=== PATIENT | female | born 1960 | race Caucasian/White ===

== ENCOUNTER 2020-03-08 01:11 | Inpatient (IN) | payer BC ==
[~2020-03-08] VITALS: Ht 154.9 cm; Wt 78.9 kg
[2020-03-08] VITALS (8 sets, daily range): BP systolic 131–157; BP diastolic 59–72
[~2020-03-08 01:11] MED LIST: AMARYL2 MG PO; ASPIR 8181 MG PO; ASPIRIN CHEW81 MG PO; ENALAPRIL-HCTZ1 EAC1 PO; GLIMEPIRIDE2 MG PO; GLIPIZIDE5 MG PO; HYDROCHLOROTH12.5 M1 PO; Hydrochlorothiazide PO; Insulin Detemir SQ; LANTUS 3ML100 UNITS/ SQ; LEVOTHYROXINE50 MCG PO; LOVASTATIN40 MG PO; METFORMIN HCL500 M2 PO; METFORMIN HCL850 MG PO; PRINIVIL10 MG PO; SEROQUEL25 MG PO; SYNTHROID50 MCG PO; VASOTEC5 MG PO; ZOCOR20 MG PO
[2020-03-08] MEDS ORDERED: ONDANSETRON HCL INJ 2MG/ML 2ML 2 MG/ML VIAL IV STA (01:24)
[2020-03-08] MEDS ORDERED: PANTOPRAZOLE 40 MG 10ML VIAL IV STA (01:24)
[2020-03-08] MEDS ORDERED: MORPHINE SULFATE 2 MG/ML SYR 1ML IV STA (01:24)
[2020-03-08] MEDS ORDERED: DICYCLOMINE HCL 20 MG/2 ML VIAL IM ONE (01:30)
--- NOTE | 2020-03-08 01:33 | Emergency Department Note ---
History of Present Illnes History of Present Illness Chief Complaint: Abdominal Complaints History of Present Illness This is a 59 year old female PRESENTS TO ED WITH GENERALIZED ABDOMINAL PAIN, WORSE TO RUQ/RLQ; PT DENIES ANY N/V/D; RESP EVEN AND UNLABORED, O2 SAT RA 100%; AFEBRILE; PT REPORTS LBM 03/07/20; PT DENIES ANY BURNING WITH URINATION; states pain gets worse after eating . Historian: Patient Arrival Mode: Car Head Pumper Required: No Onset (how long ago): day(s) (6) Location: abd Quality: pain Radiation: Reports non-radiation Severity: moderate Onset quality: gradual Duration (how long): day(s) (7) Timing of current episode: constant Progression: worsening Chronicity: new Context: Denies recent illness, Denies recent surgery Relieving factors: none Exacerbating factors: eating Associated symptoms: Reports denies other symptoms Treatments prior to arrival: none Past Medical/Family History Physician Review I have reviewed the patient's past medical and family history. Any updates have been documented here. Past Medical History Recent Fever: No Clinical Suspicion of Infectio: No New/Unexplained Change in Ment: No Past Medical History: Hypertension, Diabetes, Hypothyroidism, Hyperlipedemia Other Medical History: HIGH CHOLESTEROL Past Surgical History: Tubal Ligation Social History Smoking Cessation: Never Smoker Alcohol Use: None Physically hurt or threatened: No Family History Family history of heart diseas: No Other family history htn,dm Other Last Tetanus: UNK Review of Systems Review of Systems Constitutional: Reports no symptoms EENTM: Reports no symptoms Cardiovascular: Reports no symptoms Respiratory: Reports no symptoms Gastrointestinal: Reports as per HPI Genitourinary: Reports no symptoms Musculoskeletal: Reports no symptoms Integumentary: Reports no symptoms Neurological: Reports no symptoms Psychological: Reports no symptoms Endocrine: Reports no symptoms Hematological/Lymphatic: Reports no symptoms Physical Exam Related Data Allergies: Coded Allergies: No Known Allergies (Unverified , 05/03/14) Triage Vital Signs Vital Signs Date Time Temp Pulse Resp B/P (MAP) Pulse Ox O2 Delivery O2 Flow Rate FiO2 03/08/20 01:21 98.3 77 17 201/89 100 Room Air Vital signs reviewed: Yes Physical Exam CONSTITUTIONAL Constitutional: Present well-developed, Present well-nourished; Absent distressed HENT HENT: Present normocephalic, Present atraumatic, Present oropharynx clear/moist, Present nose normal HENT L/R: Present left ext ear normal, Present right ext ear normal EYES Eyes: Reports PERRL, Reports conjunctivae normal NECK Neck: Present ROM normal PULMONARY Pulmonary: Present effort normal, Present breath sounds normal CARDIOVASCULAR Cardiovascular: Present regular rhythm, Present heart sounds normal, Present capillary refill normal, Present normal rate GASTROINTESTINAL Abdominal: Present soft, Present nontender, Present bowel sounds normal, Present tender (epigastric and ruq) GENITOURINARY Genitourinary: Present exam deferred SKIN Skin: Present warm, Present dry MUSCULOSKELETAL Musculoskeletal: Present ROM normal NEUROLOGICAL Neurological: Present alert, Present oriented x 3, Present no gross motor or sensory deficits PSYCHOLOGICAL Psychological: Present mood/affect normal, Present judgement normal Results Laboratory Laboratory Laboratory Tests Test 03/08/20 01:24 White Blood Count 11.84 x10e3/uL (4.8-10.8) Red Blood Count 3.77 x10e6/uL (3.6-5.1) Hemoglobin 11.3 g/dL (12.0-16.0) Hematocrit 35.1 % (34.2-44.1) Mean Corpuscular Volume 93.1 fL (81-99) Mean Corpuscular Hemoglobin 30.0 pg (28-32) Mean Corpuscular Hemoglobin Concent 32.2 g/dL (31-35) Red Cell Distribution Width 12.4 % (11.7-14.4) Platelet Count 359 x10e3/uL (140-360) Neutrophils (%) (Auto) 63.4 % (38.7-80.0) Lymphocytes (%) (Auto) 29.2 % (18.0-39.1) Monocytes (%) (Auto) 5.3 % (4.4-11.3) Eosinophils (%) (Auto) 1.4 % (0.0-6.0) Basophils (%) (Auto) 0.3 % (0.0-1.0) Neutrophils # (Auto) 7.5 (2.1-6.9) Lymphocytes # (Auto) 3.5 (1.0-3.2) Monocytes # (Auto) 0.6 (0.2-0.8) Eosinophils # (Auto) 0.2 (0.0-0.4) Basophils # (Auto) 0.0 (0.0-0.1) Absolute Immature Granulocyte (auto 0.05 x10e3/uL (0-0.1) Urine Color Yellow (YELLOW) Urine Clarity Clear (CLEAR) Urine pH 7 (5 - 7) Urine Specific Stephenson 1.015 (1.010-1.025) Urine Protein 1+ (NEGATIVE) Urine Glucose (UA) 2+ (NEGATIVE) Urine Ketones Negative (NEGATIVE) Urine Blood Negative (NEGATIVE) Urine Nitrite Negative (NEGATIVE) Urine Bilirubin Negative (NEGATIVE) Urine Urobilinogen 0.2 mg/dL (0.2 - 1) Urine Leukocyte Esterase Negative (NEGATIVE) Urine RBC 0-5 /HPF (0-5) Urine WBC 0-5 /HPF (0-5) Urine Epithelial Cells Moderate /LPF (NONE) Urine Bacteria Few /HPF (NONE) Sodium Level 140 mmol/L (136-145) Potassium Level 4.0 mmol/L (3.5-5.1) Chloride Level 100 mmol/L (98-107) Carbon Dioxide Level 29 mmol/L (22-29) Anion Gap 15.0 mmol/L (8-16) Blood Urea Nitrogen 22 mg/dL (7-26) Creatinine 1.03 mg/dL (0.57-1.11) Estimat Glomerular Filtration Rate 54 ML/MIN (60-) BUN/Creatinine Ratio 21 (6-25) Glucose Level 231 mg/dL (74-118) Calcium Level 9.9 mg/dL (8.4-10.2) Total Bilirubin 0.2 mg/dL (0.2-1.2) Aspartate Amino Transf (AST/SGOT) 16 IU/L (5-34) Alanine Aminotransferase (ALT/SGPT) 15 IU/L (0-55) Alkaline Phosphatase 105 IU/L (40-150) Creatine Kinase 206 IU/L (29-168) Creatine Kinase MB 0.50 ng/mL (0-5.0) Troponin I < 0.001 ng/mL (0-0.300) Total Protein 7.9 g/dL (6.5-8.1) Albumin 4.1 g/dL (3.5-5.0) Globulin 3.8 g/dL (2.3-3.5) Albumin/Globulin Ratio 1.1 (0.8-2.0) Amylase Level 145 U/L (25-125) Lipase 298 U/L (8-78) Lab results reviewed: Yes Imaging Imaging results reviewed: Yes Assessment & Plan Medical Decision Making MDM pt with upper abd pain after eating cbc,cmp, amylase, lipase, ua, cardiac enzymes, ekg, gallbladder ultrasound ordered to eval for pancreatitis, cholecystitis, gallstone, uti, elevated lft's, myocardial infarction I SPOKE WITH DR CERON AND DR Bibiana CAMARGO, ADMIT INPATIENT Assessment & Plan Final Impression: (1) Pancreatitis Depart Disposition: ADMITTED Last Vital Signs Date Time Temp Pulse Resp B/P (MAP) Pulse Ox O2 Delivery O2 Flow Rate FiO2 03/08/20 01:21 98.3 77 17 201/89 100 Room Air Home Meds Active Scripts Simvastatin (ZOCOR) 20 Mg Tablet, 40 MG PO HS for 10 Days Prov:GAVIN CHINO NP 06/17/15 Quetiapine Fumarate (SEROQUEL) 25 Mg Tablet, 25 MG PO HS for 10 Days Prov:GAVIN CHINO NP 06/17/15 Lisinopril (PRINIVIL) 10 Mg Tablet, 10 MG PO DAILY for 10 Days Prov:GAVIN CHINO NP 06/17/15 Levothyroxine Sodium (SYNTHROID) 50 Mcg Tab, 25 MCG PO DAILY@06 for 10 Days Prov:GAVIN CHINO NP 06/17/15 [Insulin Detemir] 100 UNIT/ML PEN No Conflict Check, 30 UNIT SQ QAM for 30 Days Prov:GAVIN CHINO NP 06/17/15 [Hydrochlorothiazide] 25 MG TAB No Conflict Check, 12.5 MG PO DAILY for 10 Days Prov:GAVIN CHINO NP 06/17/15 Glimepiride (AMARYL) 2 Mg Tablet, 4 MG PO BID for 10 Days Prov:GAVIN CHINO NP 06/17/15 Enalapril Maleate (VASOTEC) 5 Mg Tab, 5 MG PO DAILY for 10 Days Prov:GAVIN CHINO NP 06/17/15 Aspirin (ASPIRIN CHEW) 81 Mg Chew, 81 MG PO DAILY for 10 Days Prov:GAVIN CHINO NP 06/17/15 Medications in the ED Morphine Sulfate 4 mg NOW STAT IV ; Start 03/08/20 at 01:24; Stop 03/08/20 at 01:25; Status UNV Ondansetron HCl 4 mg NOW STAT IV ; Start 03/08/20 at 01:24; Stop 03/08/20 at 01:25; Status UNV Dicyclomine HCl 20 mg ONCE ONCE IM ; Start 03/08/20 at 01:30; Stop 03/08/20 at 01:31 Pantoprazole Sodium 40 mg NOW STAT IV ; Start 03/08/20 at 01:24; Stop 03/08/20 at 01:25; Status UNV BILL DANIELS MD Mar 08, 2020 01:32
[2020-03-08 01:41] LABS: BASOPHILS % 0.3 % (0.0-1.0); EOSINOPHILS # (AUTO) 0.2 (0.0-0.4); EOSINOPHILS % 1.4 % (0.0-6.0); HEMATOCRIT 35.1 % (34.2-44.1); HEMOGLOBIN 11.3 g/dL (12.0-16.0); LYMPHOCYTES # (AUTO) 3.5 (1.0-3.2); LYMPHOCYTES % 29.2 % (18.0-39.1); MEAN CORPUSCULAR HGB CONC 32.2 g/dL (31-35); MEAN CORPUSCULAR VOLUME 93.1 fL (81-99); MONOCYTES # (AUTO) 0.6 (0.2-0.8); MONOCYTES % 5.3 % (4.4-11.3); NEUTROPHILS # (AUTO) 7.5 (2.1-6.9); NEUTROPHILS % 63.4 % (38.7-80.0); PLATELET COUNT 359 x10e3/uL (140-360); RED BLOOD COUNT 3.77 x10e6/uL (3.6-5.1); RED CELL DISTRIBUTION WIDTH 12.4 % (11.7-14.4)
[2020-03-08 01:42] LABS: BILIRUBIN,URINE NEGATIVE (NEGATIVE); CLARITY,URINE CLEAR (CLEAR); COLOR,URINE YELLOW (YELLOW); KETONES,URINE NEGATIVE (NEGATIVE); LEUKOCYTE ESTERASE ,URINE NEGATIVE (NEGATIVE); NITRITE,URINE NEGATIVE (NEGATIVE); PROTEIN,URINE DIPSTICK 1+ (NEGATIVE); URINE UROBILINOGEN 0.2 mg/dL (0.2 - 1)
[2020-03-08 01:51] LABS: BACTERIA,URINE FEW /HPF; EPITHELIAL CELLS,URINE MODERATE /LPF; RBC,URINE 0-5 /HPF (0-5); WBC,URINE (MAN) 0-5 /HPF (0-5)
--- OUTSIDE RECORDS SUMMARY | 2020-03-08 01:53 | XMS REPORT | Continuity of Care Document ---
Author Author [facility] Organization [facility] Address [address] [place] [address] Phone Unavailable Care Team Providers Care Hygiene Assistant Name Role Phone Unavailable Unavailable Problems This patient has no known problems. Allergies, Adverse Reactions, Alerts This patient has no known allergies or adverse reactions. Medications This patient has no known medications. Procedures This patient has no known procedures. Results Test Description Test Time Test Comments Results Result Comments Source BREAST STEREO CORE BIOPSY RIGHT 2019-09-27 08:00:21 - BREAST STEREO CORE BIOPSY RIGHTSTEREOTACTIC GUIDED BIOPSY RIGHT BREAST WITH MARKING DEVICE INSERTED: 09/20/2019CLINICAL: Stereotactic biopsy, right breast. Comparison is made to exam dated 09/05/2019 mammogram - [facility]. A stereotactic guided biopsy was performed for the asymmetry located in the right breast at 11 o'clock, posterior depth. This was described on the previous mammo graphy report. The skin was prepped in the usual manner. Local anesthetic was administered to the access site. The abnormality was approached from the craniocaudal aspect using an upright mammography unit. A biopsy needle was placed adjacent to the abnormality under computer guidance and confirmatory stereotactic mammography images were obtained to document needle placement. Once the needle was documented to be in the correct location, a specimen was obtained using an automated biopsy gun. A clip was inserted into the biopsy cavity. The specimen was sent to the laboratory for pathological analysis. IMPRESSION: STEREOTACTIC GUIDED BIOPSYStereotactic guided biopsy of the asymmetry in the right breast at 11 o'clock, posterior depth, was successful with no apparent post procedure complications. Waiting for pathology results. A final report will be issued when these become available. Final Pathology:Benign fibroglandular and fatty breast parenchyma. Negative for atypia, in situ and invasive malignancy.Recommendation:Benign biopsy, concordant. Normal interval follow-up in 1 year is recommended at this time.Dameon Vega M.D. ss/:09/27/2019 08:00:21 copy to: [facility], [facility], ph: [phone], fax: [phone] Technologist: Belle ROOT, [facility]: Benign Biopsy BREAST STEREO CORE BIOPSY RIGHT 2019-09-27 08:00:21 - BREAST STEREO CORE BIOPSY RIGHTSTEREOTACTIC GUIDED BIOPSY RIGHT BREAST WITH MARKING DEVICE INSERTED: 09/20/2019CLINICAL: Stereotactic biopsy, right breast. Comparison is made to exam dated 09/05/2019 mammogram - [facility] A stereotactic guided biopsy was performed for the asymmetry located in the right breast at 11 o'clock, posterior depth. This was described on the previous mammo graphy report. The skin was prepped in the usual manner. Local anesthetic was administered to the access site. The abnormality was approached from the craniocaudal aspect using an upright mammography unit. A biopsy needle was placed adjacent to the abnormality under computer guidance and confirmatory stereotactic mammography images were obtained to document needle placement. Once the needle was documented to be in the correct location, a specimen was obtained using an automated biopsy gun. A clip was inserted into the biopsy cavity. The specimen was sent to the laboratory for pathological analysis. IMPRESSION: STEREOTACTIC GUIDED BIOPSYStereotactic guided biopsy of the asymmetry in the right breast at 11 o'clock, posterior depth, was successful with no apparent post procedure complications. Waiting for pathology results. A final report will be issued when these become available. Final Pathology:Benign fibroglandular and fatty breast parenchyma. Negative for atypia, in situ and invasive malignancy.Recommendation:Benign biopsy, concordant. Normal interval follow-up in 1 year is recommended at this time.Dameon Vega M.D. ss/:09/27/2019 08:00:21 copy to: [facility], [facility], ph: [phone], fax: [phone] Technologist: Belle ROOT, [facility] sent: Benign Biopsy DIAG MAMM BILATERAL ZOE CAD DIGITAL 2019-09-05 09:13:23 - DIAG MAMM BILATERAL ZOE CAD DIGITALBILATERAL DIGITAL DIAGNOSTIC MAMMOGRAM 3D/2D WITH CAD: 09/05/2019CLINICAL: Focal pain, right breast. Digital breast tomosynthesis was performed in addition to routine CC and MLO views. Current mammographic images were evaluated by either a [employer] M-Vu or a Intale ImageChecker CAD (computer aided detection system). Comparison is made to exams dated 04/12/2018 mammogram, 10/13/2016 mammogram, and [facility]21/[facility] There are scattered fibroglandular tissues in both breasts. Questionable area of focal asymmetry/architectural distortion in the right upper outer quadrant, approximately 8 cm from the nipple, best seen in RS spot compression view slice 28. No suspicious mass, architectural distortion, malignant type calcification, or lymph node abnormality detected in the left breast. INCOMPLETE: ADDITIONAL IMAGING EVALUATION NEEDEDQuestionable distortion/focal asymmetry in the right upper outer quadrant posterior depth. Targeted right and bilateral survey ultrasound of follow.- BREAST ULTRASOUND BILATERALULTRASOUND OF BOTH BREASTS: 09/05/2019Comparison is made to exams dated 04/12/2018 mammogram, 10/13/2016 mammogram, and 09/21/2015 mammogram - [facility]-. Color flow and real-time ultrasound of both breasts were performed. Grissom scale images of the real-time examination were reviewed. The breast tissue has scattered fibroglandular background echotexture. Bilateral survey ultrasound demonstrates no suspicious sonographic abnormality. No axillary lymphadenopath was seen.IMPRESSION: SUSPICIOUS OF MALIGNANCY - FOLLOW-UP RECOMMENDEDQuestionable focal asymmetry/distortion in the right upper outer quadrant posterior depth. A tomosynthesis guided core biopsy should be attempted and if on the day of biopsy this cannot be localized, then a six-month follow-up is recommended at this time. Clinical follow up is also recommended, and further management of clinical findings should be based on clinical examination.Dameon Vega M.D. ss/:09/05/2019 09:13:23 copy to: [facility], [facility], ph: [phone], fax: [phone] Technologist: Kristin ROOT, [facility] sent: BIRADS 4/5 Biopsy Mammogram BI-RADS: 0 Incomplete: Additional Imaging Evaluation Needed Ultrasound BI-RADS: 4a Suspicious abnormality - low suspicion for malignancy BREAST ULTRASOUND BILATERAL 2019-09-05 09:13:23 - DIAG MAMM BILATERAL ZOE CAD DIGITALBILATERAL DIGITAL DIAGNOSTIC MAMMOGRAM 3D/2D WITH CAD: 09/05/2019CLINICAL: Focal pain, right breast. Digital breast tomosynthesis was performed in addition to routine CC and MLO views. Current mammographic images were evaluated by either a [employer] M-Vu or a [employer]ale ImageChecker CAD (computer aided detection system). Comparison is made to exams dated 04/12/2018 mammogram, 10/13/2016 mammogram, and 09/21/2015 mammogram - [facility]-. There are scattered fibroglandular tissues in both breasts. Questionable area of focal asymmetry/architectural distortion in the right upper outer quadrant, approximately 8 cm from the nipple, best seen in RS spot compression view slice 28. No suspicious mass, architectural distortion, malignant type calcification, or lymph node abnormality detected in the left breast. INCOMPLETE: ADDITIONAL IMAGING EVALUATION NEEDEDQuestionable distortion/focal asymmetry in the right upper outer quadrant posterior depth. Targeted right and bilateral survey ultrasound of follow.- BREAST ULTRASOUND BILATERALULTRASOUND OF BOTH BREASTS: 09/05/2019Comparison is made to exams dated 04/12/2018 mammogram, 10/13/2016 mammogram, and 09/21/2015 mammogram - [facility]-. Color flow and real-time ultrasound of both breasts were performed. Grissom scale images of the real-time examination were reviewed. The breast tissue has scattered fibroglandular background echotexture. Bilateral survey ultrasound demonstrates no suspicious sonographic abnormality. No axillary lymphadenopath was seen.IMPRESSION: SUSPICIOUS OF MALIGNANCY - FOLLOW-UP RECOMMENDEDQuestionable focal asymmetry/distortion in the right upper outer quadrant posterior depth. A tomosynthesis guided core biopsy should be attempted and if on the day of biopsy this cannot be localized, then a six-month follow-up is recommended at this time. Clinical follow up is also recommended, and further management of clinical findings should be based on clinical examination.aDmeon Vega M.D. ss/:09/05/2019 09:13:23 copy to: [facility], [facility], ph: [phone], fax: [phone] Technologist: Kristin ROOT, [facility] sent: BIRADS 4/5 Biopsy Mammogram BI-RADS: 0 Incomplete: Additional Imaging Evaluation Needed Ultrasound BI-RADS: 4a Suspicious abnormality - low suspicion for malignancy DIAG MAMM BILATERAL CAD DIGITAL 2018-04-12 15:58:52 - DIAG MAMM BILATERAL CAD DIGITALBILATERAL DIGITAL DIAGNOSTIC MAMMOGRAM WITH CAD: 04/12/2018Current mammographic images were evaluated by either a [employer] M-Vu or a [employer]ale ImageChecker CAD (computer aided detection system). Comparison is made to exams dated 10/13/2016 mammogram, 09/21/2015 mammogram, and 10/28/2012 mammogram - [facility]-. There are scattered fibroglandular tissues in both breasts. No suspicious mass, architectural distortion, malignant type calcification, or lymph node abnormality detected. INCOMPLETE ASSESSMENT: ADDITIONAL IMAGING EVALUATION RECOMMENDEDUltrasound pending for additional evaluation. Resume annual screening mammography in one year. - BREAST ULTRASOUND BILATERALULTRASOUND OF BOTH BREASTS AND BOTH AXILLA: 04/12/2018Comparison is made to exams dated 10/13/2016 mammogram, 09/21/2015 mammogram, and 10/28/2012 mammogram - [facility]-. Real-time ultrasound of both breasts and both axilla was performed. No abnormalities were seen sonographically in either breast or either axilla. Clinical breast exam was unremarkable.IMPRESSION: NEGATIVE There is no sonographic evidence of malignancy. Resume annual screening mammography in one year. Mabel Prabhakar M.D. dm/:04/12/2018 15:58:52 Entry: - 04/12/2018 16:26:59copy to: [facility], [facility], ph: [phone], fax: [phone] Technologist: Amber Oliver , [facility] sent: BIRADS 1-2 Combo FU Letter Mammogram BI-RADS: 0 Indeterminate Ultrasound BI-RADS: 1 Negative BREAST ULTRASOUND BILATERAL 2018-04-12 15:58:52 - DIAG MAMM BILATERAL CAD DIGITALBILATERAL DIGITAL DIAGNOSTIC MAMMOGRAM WITH CAD: 04/12/2018Current mammographic images were evaluated by either a [employer] M-Vu or a [employer]ale ImageChecker CAD (computer aided detection system). Comparison is made to exams dated 10/13/2016 mammogram, 09/21/2015 mammogram, and 10/28/2012 mammogram - [facility]-. There are scattered fibroglandular tissues in both breasts. No suspicious mass, architectural distortion, malignant type calcification, or lymph node abnormality detected. INCOMPLETE ASSESSMENT: ADDITIONAL IMAGING EVALUATION RECOMMENDEDUltrasound pending for additional evaluation. Resume annual screening mammography in one year. - BREAST ULTRASOUND BILATERALULTRASOUND OF BOTH BREASTS AND BOTH AXILLA: 04/12/2018Comparison is made to exams dated 10/13/2016 mammogram, 09/21/2015 mammogram, and 10/28/2012 mammogram - [facility]-. Real-time ultrasound of both breasts and both axilla was performed. No abnormalities were seen sonographically in either breast or either axilla. Clinical breast exam was unremarkable.IMPRESSION: NEGATIVE There is no sonographic evidence of malignancy. Resume annual screening mammography in one year. Mabel Prabhakar M.D. dm/:04/12/2018 15:58:52 Entry: - 04/12/2018 16:26:59copy to: [facility], [facility], ph: [phone], fax: [phone] Technologist: Amber Oliver , [facility] sent: BIRADS 1-2 Combo FU Letter Mammogram BI-RADS: 0 Indeterminate Ultrasound BI-RADS: 1 Negative
[2020-03-08 01:57] LABS: AMYLASE 145 U/L (25-125); LIPASE 298 U/L (8-78)
[2020-03-08 02:01] LABS: ALANINE AMINOTRANSFERASE 15 IU/L (0-55); ALBUMIN 4.1 g/dL (3.5-5.0); ALBUMIN/GLOBULIN RATIO 1.1 (0.8-2.0); ALKALINE PHOSPHATASE 105 IU/L (40-150); BLOOD UREA NITROGEN 22 mg/dL (7-26); BUN/CREATININE RATIO 21 (6-25); CALCIUM 9.9 mg/dL (8.4-10.2); CARBON DIOXIDE 29 mmol/L (22-29); CHLORIDE 100 mmol/L (98-107); CREATINE KINASE 206 IU/L (29-168); CREATININE, SERUM 1.03 mg/dL (0.57-1.11); EST GLOMERULAR FILTRATION RATE 54 ML/MIN (60-); GLUCOSE 231 mg/dL (74-118); SODIUM 140 mmol/L (136-145)
--- NOTE | 2020-03-08 03:47 | Diagnostic Imaging Report ---
EXAM: Right Upper Quadrant Ultrasound with Doppler INDICATION: ^ruq pain ^[id number] ^[id number] ^Y COMPARISON: Abdominal CT report on 05/03/2014. TECHNIQUE: Transverse and longitudinal images of the right upper abdomen were obtained. Grayscale, color Doppler and spectral waveform analysis of the hepatic vasculature and splenic vein were performed. FINDINGS: Liver: Size: 16.8 cm in the right midclavicular line, normal Appearance: Increased echogenicity, smooth contour Mass: No focal masses Gallbladder: Not seen. Bile Ducts: Intrahepatic Ducts: No dilatation Extrahepatic Ducts: Common bile duct measures 0.66 cm, no dilatation Pancreas: Visualized portions of the pancreatic head, neck and proximal body are normal. Right Kidney: Size: 10.8 cm Echogenicity: Normal Parenchymal thickness: Normal Collecting system: No hydronephrosis Stones: None Cyst/Mass: A tiny hyperechoic focus within the parenchyma of the inferior pole can be a vessel. Vessels: Main Portal Vein: Diameter: 0.9 cm, normal. Normal flow direction. Aorta: Visualized portions are normal Inferior Vena Cava: Visualized portions are normal Free Fluid: No ascites or pleural effusion IMPRESSION: Gallbladder not seen. Per abdominal CT report on 05/03/2014, the gallbladder has been removed. Hepatic steatosis. Signed by: Gonzales Carrasco DO on 03/08/2020 3:43 AM
--- OUTSIDE RECORDS SUMMARY | 2020-03-08 03:53 | XMS REPORT | Continuity of Care Document ---
Author Author [facility] Organization [facility] Address [address] [place] [id number] Phone Unavailable Care Team Providers Care Materials Director Name Role Phone Selene DANIELS Attphys Unavailable Problems This patient has no known problems. Allergies, Adverse Reactions, Alerts This patient has no known allergies or adverse reactions. Medications This patient has no known medications. Procedures This patient has no known procedures. Results Test Description Test Time Test Comments Results Result Comments Source [facility] 2020-03-08 03:41:00 [facility] 1960 Sex: F [facility] [address] [place] [address] Patient Name: CARI HALL MR #: [id number] : 1960 Age/Sex: 59/F Req #: [id number] [facility] Physician: Ordered by: BILL DANIELS MD Report #: [id number] Location: ER Room/Bed: Procedure: [id number] US/US GALLBLADDER Exam Date: 03/08/20 Exam Time: 211 REPORT STATUS: Signed EXAM: Right Upper Quadrant Ultrasound with Doppler INDICATION: ruq pain [id number] Y COMPARISON: Abdominal CT report on 05/03/2014. TECHNIQUE: Transverse and longitudinal images of the right upper abdomen were obtained. Grayscale, color Doppler and spectral waveform analysis of the hepatic vasculature and splenic vein were performed. FINDINGS: Liver: Size: 16.8 cm in the right midclavicular line, normal Appearance: Increased echogenicity, smooth contour Mass: No focal masses Gallbladder: Not seen. Bile Ducts: Intrahepatic Ducts: No dilatation Extrahepatic Ducts: Common bile duct measures 0.66 cm, no dilatation Pancreas: Visualized portions of the pancreatic head, neck and proximal body are normal. Right Kidney: Size: 10.8 cm Echogenicity: Normal Parenchymal thickness: Normal Collecting system: No hydronephrosis Stones: None Cyst/Mass: A tiny hyperechoic focus within the parenchyma of the inferior pole can be a vessel. Vessels: Main Portal Vein: Diameter: 0.9 cm, normal. Normal flow direction. Aorta: Visualized portions are normal Inferior Vena Cava: Visualized portions are normal Free Fluid: No ascites or pleural effusion IMPRESSION: Gallbladder not seen. Per abdominal CT report on 05/03/2014, the gallbladder has been removed. Hepatic steatosis. Signed by: Gonzales Carrasco DO on 03/08/2020 3:43 AM Dictated By: GONZALES CARRASCO DO 2 Transcribed By: TRINIDAD on 03/08/20342 COPY TO: BILL DANIELS MD BREAST STEREO CORE BIOPSY RIGHT 2019-09-27 08:00:21 - BREAST STEREO CORE BIOPSY RIGHTSTEREOTACTIC GUIDED BIOPSY RIGHT BREAST WITH MARKING DEVICE INSERTED: 09/20/2019CLINICAL: Stereotactic biopsy, right breast. Comparison is made to exam dated 09/05/2019 mammogram - [facility]. A stereotactic guided biopsy was [...] copy to: [facility], [facility], ph: [phone], fax: [phone] Technologist: Belle ROOT, [facility] sent: Benign Biopsy BREAST STEREO CORE BIOPSY RIGHT 2019-09-27 08:00:21 - BREAST STEREO CORE BIOPSY RIGHTSTEREOTACTIC GUIDED BIOPSY RIGHT BREAST WITH MARKING DEVICE INSERTED: 09/20/2019CLINICAL: Stereotactic biopsy, right breast. Comparison is made to exam dated 09/05/2019 mammogram - [facility] A stereotactic guided biopsy was [...] copy to: [facility], [facility], ph: [phone], fax: [phone] Technologist: Belle ROOT, [facility] sent: Benign Biopsy DIAG MAMM BILATERAL ZOE CAD DIGITAL 2019-09-05 09:13:23 - DIAG MAMM BILATERAL ZOE CAD DIGITALBILATERAL DIGITAL DIAGNOSTIC MAMMOGRAM 3D/2D WITH CAD: 09/05/2019CLINICAL: Focal pain, right breast. Digital breast tomosynthesis was performed in addition to routine CC and MLO views. Current mammographic images were evaluated by either a [employer] M-Vu or a [employer] ImageChecker CAD (computer aided detection system). Comparison is made to exams dated 04/12/2018 mammogram, 10/13/2016 mammogram, and 09/21/2015 [facility]. There are scattered fibroglandular tissues in both [...] 10/13/2016 mammogram, and 09/21/2015 [facility]. Color flow and real-time ultrasound of both [...] copy to: [facility], [facility], ph: [phone], fax: [phone] Technologist: Kristin ROOT, [facility] sent: BIRADS 4/5 Biopsy Mammogram [...] mammographic images were evaluated by either a [employer] M-Vu or a [employer] ImageChecker CAD (computer aided detection system). Comparison is made to exams dated 04/12/2018 mammogram, 10/13/2016 mammogram, and 09/21/2015 mammogram - [facility] There are scattered fibroglandular tissues [...] 10/13/2016 mammogram, and 09/21/2015 [facility]. Color flow and real-time ultrasound of both [...] copy to: [facility], [facility], ph: [phone], fax: [phone] Technologist: Kristin ROOT, [facility]letter sent: BIRADS 4/5 Biopsy Mammogram BI-RADS: 0 Incomplete: Additional Imaging Evaluation Needed Ultrasound BI-RADS: 4a Suspicious abnormality - low suspicion for malignancy DIAG MAMM BILATERAL CAD DIGITAL 2018-04-12 15:58:52 - DIAG MAMM BILATERAL CAD DIGITALBILATERAL DIGITAL DIAGNOSTIC MAMMOGRAM WITH CAD: 04/12/2018Current mammographic images were evaluated by either a [employer] M-Vu or a [employer] ImageChecker CAD (computer aided detection system). Comparison is made to exams dated 10/13/2016 mammogram, 09/21/2015 mammogram, and 10/28/2012 [facility]. There are scattered fibroglandular tissues in both breasts. No suspicious mass, architectural distortion, malignant type calcification, or lymph node abnormality detected. INCOMPLETE ASSESSMENT: ADDITIONAL IMAGING EVALUATION RECOMMENDEDUltrasound pending for additional evaluation. Resume annual screening mammography in one year. - BREAST ULTRASOUND BILATERALULTRASOUND OF BOTH BREASTS AND BOTH AXILLA: 04/12/2018Comparison is made to exams dated 10/13/2016 mammogram, 09/21/2015 mammogram, and 10/28/2012 [facility]. Real-time ultrasound of both breasts and both axilla was performed. No abnormalities were seen sonographically in either breast or either axilla. Clinical breast exam was unremarkable.IMPRESSION: NEGATIVE There is no sonographic evidence of malignancy. Resume annual screening mammography in one year. Mabel Prabhakar M.D. dm/:04/12/2018 15:58:52 Entry: 04/12/2018 16:26:59copy to: [facility], [facility], ph: [phone], fax: [phone] Technologist: Amber Oliver , [facility] sent: BIRADS 1-2 Combo FU Letter Mammogram BI-RADS: 0 Indeterminate Ultrasound BI-RADS: 1 Negative BREAST ULTRASOUND BILATERAL 2018-04-12 15:58:52 - DIAG MAMM BILATERAL CAD DIGITALBILATERAL DIGITAL DIAGNOSTIC MAMMOGRAM WITH CAD: 04/12/2018Current mammographic images were evaluated by either a [employer] M-Vu or a [employer] CAD (computer aided detection system). Comparison is made to exams dated 10/13/2016 mammogram, 09/21/2015 mammogram, and 10/28/2012 mammogram - [facility] There are scattered fibroglandular tissues [...] 09/21/2015 mammogram, and 10/28/2012 [facility]. Real-time ultrasound of both breasts and both axilla was performed. No abnormalities were seen sonographically in either breast or either axilla. Clinical breast exam was unremarkable.IMPRESSION: NEGATIVE There is no sonographic evidence of malignancy. Resume annual screening mammography in one year. Mabel Prabhakar M.D. dm/:04/12/2018 15:58:52 Entry: 04/12/2018 16:26:59copy to: [facility], [facility], ph: [phone], fax: [phone] Technologist: Amber ROOT, [facility] sent: BIRADS 1-2 Combo FU Letter Mammogram BI-RADS: 0 Indeterminate Ultrasound BI-RADS: 1 Negative
[2020-03-08] MEDS ORDERED: DEXTROSE 50% SYRINGE 50 ML IV PRN (04:00)
--- NOTE | 2020-03-08 04:55 | NUR ---
Received report from ER nurse.
--- NOTE | 2020-03-08 05:10 | NUR ---
Patient arrived to the floor via W/C.
[2020-03-08] MEDS: INSULIN REGULAR, HUMAN 100 UNIT/1 ML 3ML VIAL SQ SCH ×4 (07:30→21:00)
[2020-03-08] MEDS: SODIUM CHLORIDE 0.9% 1000ML 1,000 ML IV SCH ×5 (08:00→20:00)
--- NOTE | 2020-03-08 09:14 | NUR ---
pt off unit for procedure.
[2020-03-08] MEDS: MORPHINE SULFATE 2 MG/ML SYR 1ML IV PRN ×2 (09:36→22:00)
[2020-03-08] MEDS: ONDANSETRON HCL INJ 2MG/ML 2ML 2 MG/ML VIAL IV PRN ×2 (09:37→22:00)
--- NOTE | 2020-03-08 11:15 | NUR ---
pt return to room resp even and unlabored at this time
--- NOTE | 2020-03-08 11:49 | Diagnostic Imaging Report ---
MRI/MRCP of the abdomen, without contrast, 03/08/2020. History: Right upper quadrant pain, concern for pancreatitis. Comparison: None available. TECHNIQUE: Multiplanar, multisequence images of the abdomen were acquired without the administration of intravenous gadolinium as per the MRCP protocol. Three-dimensional reconstructions were acquired and utilized by the dictating radiologist at the time of interpretation. Discussion: The gallbladder is absent. There is no intrahepatic or extrahepatic ductal dilatation. The CBD measures 7 mm in diameter. There is no intraluminal filling defect. Pancreatic duct is not dilated. Evaluation of intra-abdominal organs is limited without IV contrast. The liver, spleen, pancreas, kidneys, and adrenal glands are unremarkable. There is no fluid surrounding the pancreas. There is no evidence of free fluid. IMPRESSION: Status post cholecystectomy. Otherwise unremarkable MRCP. Signed by: Lawson Coombs on 03/08/2020 11:46 AM
[2020-03-08 12:39] LABS: % IRON SATURATION 10 % (15-50); IRON 34 ug/dL (50-170); TOTAL IRON BINDING CAPACITY 326 ug/dL (261-478); TRANSFERRIN 233 mg/dL (180-382)
[2020-03-08 18:46] LABS: AMYLASE 148 U/L (25-125); LIPASE 298 U/L (8-78)
--- NOTE | 2020-03-08 19:21 | NUR ---
walking rounds complete report given to on coming nurse.
[2020-03-08] MEDS ORDERED: IRON SUCROSE 100 MG in SODIUM CHLORIDE 0.9% 100 ML 100 ML IV SCH (21:30)
[2020-03-08] MEDS ORDERED: CYANOCOBALAMIN INJ 1,000 MCG/ML VIAL IM ONE (21:30)
[2020-03-09] VITALS (8 sets, daily range): BP systolic 124–164; BP diastolic 58–72
[2020-03-09] MEDS: SODIUM CHLORIDE 0.9% 1000ML 1,000 ML IV SCH ×4 (04:00→23:26)
--- NOTE | 2020-03-09 04:06 | History and Physical ---
HISTORY OF PRESENT ILLNESS: The patient was seen earlier in the day and basically, she presented to the hospital complaining generalized abdominal pain, worse in the right upper quadrant and right lower quadrant. The patient denies nausea, vomiting, or diarrhea. The patient denies having chest pain or shortness of breath. O2 saturation was 100%, has been afebrile. The patient denies urinary symptoms, but is still having generalized abdominal pain and noted to have a slight elevation of amylase, lipase, and the patient underwent workup with a CAT scan of the abdomen and no significant findings. The patient did have imaging studies consistent of ultrasound of the gallbladder with no acute findings. MRCP has been ordered as well. The patient is status post hypothyroidism. Cholecystectomy. Otherwise, MRCP was unremarkable. PAST MEDICAL HISTORY: The patient does have a history of hypertension, diabetes mellitus, hypothyroidism, and hyperlipidemia. No myocardial infarction or CVA. PAST SURGICAL HISTORY: History of tubal ligation. SOCIAL HISTORY: No tobacco, no alcohol abuse. ALLERGIES: NO KNOWN DRUG ALLERGIES THAT I AM AWARE. MEDICATIONS: At the time of admission as per medication list. PHYSICAL EXAMINATION: GENERAL: Revealed the patient alert, oriented to person, time, and place. The patient did not appear to be in distress at this time. VITAL SIGNS: Blood pressure 140/70, respirations 16, pulse 64, and temperature 98.2. Physical examination: The patient was alert oriented person time place. The patient appeared to be in no distress. Physical examination revealed a patient who was alert oriented to person time place the patient was in no distress. HEENT: No gross abnormalities. Neck: Supple no JVD, thyroid gland was not enlarged. Lungs: Clear to auscultation. Heart: Regular rate and rhythm no murmurs, no gallops, no rubs. Abdomen: Soft nontender, no organomegaly, no palpable masses, bowel sounds were present. On admission some tenderness noted in the abdomen. Extremities: No cyanosis clubbing or edema. Neuro: No focal weakness. Skin: Negative. Psychiatrist: Normal mood Laboratory data: WBC 11.84, hemoglobin 8.3, hematocrit 35.1, platelet count 359,000, neutrophils 7.5 Urinalysis: Essentially negative. 2+ glucose. WBC 0-5 per high per field. Few bacteria. CHEM profile revealed: Sodium 140, potassium 4.0, chloride 100, CO2 29, BUN 22, creatinine 1.03, GFR 54, BUN/creatinine ratio 21, calcium level 9.9, total bili 0.2, AST 16, ALT 15, alkaline phosphatase 105 Amylase 135, lipase 298 Assessment: Abdominal pain etiology determined. Status post cholecystectomy Elevated liver function Possible UTI Hypertension Diabetes mellitus type 2 Hyperlipidemia Hypothyroidism. Plan of care: Follow-up kidney function GI consultation Reconcile home medication Monitor blood pressure Monitor H&H MD HEATHER Tam/MIGUEL /[id number] MTDD
[2020-03-09 06:32] LABS: BASOPHILS % 0.4 % (0.0-1.0); EOSINOPHILS # (AUTO) 0.2 (0.0-0.4); EOSINOPHILS % 1.9 % (0.0-6.0); HEMATOCRIT 33.6 % (34.2-44.1); HEMOGLOBIN 10.8 g/dL (12.0-16.0); LYMPHOCYTES # (AUTO) 3.4 (1.0-3.2); MEAN CORPUSCULAR HGB CONC 32.1 g/dL (31-35); MEAN CORPUSCULAR VOLUME 93.3 fL (81-99); MONOCYTES # (AUTO) 0.5 (0.2-0.8); MONOCYTES % 5.2 % (4.4-11.3); NEUTROPHILS # (AUTO) 5.6 (2.1-6.9); NEUTROPHILS % 57.2 % (38.7-80.0); PLATELET COUNT 342 x10e3/uL (140-360); RED CELL DISTRIBUTION WIDTH 12.6 % (11.7-14.4)
--- NOTE | 2020-03-09 07:12 | NUR ---
Received report from retail shift manager nurse at bedside. Patient stable and in no respiratory distress. IVF restarted. No complaints of pain. Call light in reach.
[2020-03-09 07:14] LABS: ALANINE AMINOTRANSFERASE 14 IU/L (0-55); ALBUMIN 3.6 g/dL (3.5-5.0); ALBUMIN/GLOBULIN RATIO 1.1 (0.8-2.0); ALKALINE PHOSPHATASE 97 IU/L (40-150); AMYLASE 75 U/L (25-125); ANION GAP 15.1 mmol/L (8-16); BLOOD UREA NITROGEN 11 mg/dL (7-26); BUN/CREATININE RATIO 15 (6-25); CALCIUM 8.8 mg/dL (8.4-10.2); CARBON DIOXIDE 27 mmol/L (22-29); CHLORIDE 104 mmol/L (98-107); CREATININE, SERUM 0.72 mg/dL (0.57-1.11); EST GLOMERULAR FILTRATION RATE > 60 ML/MIN (60-); GLUCOSE 130 mg/dL (74-118); LIPASE 64 U/L (8-78); POTASSIUM 4.1 mmol/L (3.5-5.1); SODIUM 142 mmol/L (136-145)
[2020-03-09] MEDS: INSULIN REGULAR, HUMAN 100 UNIT/1 ML 3ML VIAL SQ SCH ×3 (08:57→17:03)
[2020-03-09] MEDS: IRON SUCROSE 100 MG in SODIUM CHLORIDE 0.9% 100 ML 100 ML IV SCH (08:58)
[2020-03-09] MEDS: CYANOCOBALAMIN INJ 1,000 MCG/ML VIAL IM SCH (08:58)
--- NOTE | 2020-03-09 13:45 | NUR ---
Patient complained of left hamstring discomfort 4/10 and requested a warm compress. Warm compress provided.
--- NOTE | 2020-03-09 13:50 | NUR ---
This nurse reached out to Dr. Mcclellan to upgrade diet as patient is tolerating clear liquids with no complaints of pain or nausea. Pending callback.
[2020-03-09] MEDS ORDERED: MORPHINE SULFATE INJ 4 MG/ML INJ 1ML IV PRN (14:45)
--- NOTE | 2020-03-09 19:25 | NUR ---
Patient received lying in bed. AAO x 3. Patient had no complaints of pain. Respirations even and non-labored. Safety measures in place. NS infusing at 100 cc/hr. Patient instructed to call for assistance when needed. Call light within reach.
--- NOTE | 2020-03-09 23:09 | NUR ---
Patient complained of having a headache and her BP is elevated. Dr. Mcgarry notified. New orders received for Tylenol 650 mg PO Q6H and Hydralazine 10 mg IV Q6H PRN.
[2020-03-09] MEDS ORDERED: HYDRALAZINE HCL 20 MG/ML VIAL IV PRN (23:15)
[2020-03-09] MEDS ORDERED: ACETAMINOPHEN 325 MG TAB PO PRN (23:15)
[2020-03-10] VITALS: BP 148/49
--- NOTE | 2020-03-10 00:38 | NUR ---
03/09/2020 progress note Subjective: The patient feeling better. She does have some discomfort in the abdomen. No nausea, no vomiting, no diarrhea. No fever or chills. Amylase 75 Objective: Patient alert oriented to person time place. Patient no distress. Vital signs: Blood pressure 145/64, respiration 18, pulse 61, temperature 98.4 Physical examination revealed a patient who was alert oriented to person time place the patient was in no distress. HEENT: No gross abnormalities. Neck: Supple no JVD, thyroid gland was not enlarged. Lungs: Clear to auscultation. Heart: Regular rate and rhythm no murmurs, no gallops, no rubs. Abdomen: Soft nontender, no organomegaly, no palpable masses, bowel sounds were present Extremities: No cyanosis clubbing or edema. Neuro: No focal weakness. Skin: Negative. Psychiatrist: Normal mood Lab data: Hemoglobin 10.8, WBC 9.67, platelet count 342,000 Chemistry profile revealed sodium 142, potassium 4.1, chloride 104, CO2 27, BUN 11, creatinine 0.72, glucose 130 Assessment: Abdominal pain etiology undetermined. Status post cholecystectomy Elevated liver function Possible UTI Hypertension Diabetes mellitus type 2 Hyperlipidemia Hypothyroidism. Plan of care: Follow-up kidney function GI consultation Reconcile home medication Monitor blood pressure Monitor H&H
[2020-03-10] MEDS: INSULIN REGULAR, HUMAN 100 UNIT/1 ML 3ML VIAL SQ SCH ×4 (00:57→16:30)
[2020-03-10] MEDS ORDERED: MELATONIN 5 MG TABLET PO ONE (03:00)
[2020-03-10 04:00] VITALS: BP 129/62
[2020-03-10] MEDS: SODIUM CHLORIDE 0.9% 1000ML 1,000 ML IV SCH (04:22)
[2020-03-10 05:42] LABS: BASOPHILS % 0.4 % (0.0-1.0); EOSINOPHILS # (AUTO) 0.2 (0.0-0.4); EOSINOPHILS % 2.1 % (0.0-6.0); HEMATOCRIT 28.6 % (34.2-44.1); HEMOGLOBIN 9.1 g/dL (12.0-16.0); LYMPHOCYTES % 36.8 % (18.0-39.1); MEAN CORPUSCULAR HEMOGLOBIN 29.7 pg (28-32); MEAN CORPUSCULAR HGB CONC 31.8 g/dL (31-35); MEAN CORPUSCULAR VOLUME 93.5 fL (81-99); MONOCYTES # (AUTO) 0.4 (0.2-0.8); MONOCYTES % 5.2 % (4.4-11.3); NEUTROPHILS # (AUTO) 4.5 (2.1-6.9); NEUTROPHILS % 55.1 % (38.7-80.0); PLATELET COUNT 281 x10e3/uL (140-360); RED BLOOD COUNT 3.06 x10e6/uL (3.6-5.1); RED CELL DISTRIBUTION WIDTH 12.4 % (11.7-14.4)
[2020-03-10] MEDS ORDERED: LEVOTHYROXINE SODIUM 25 MCG TABLET PO SCH (06:00)
[2020-03-10 06:09] LABS: ALANINE AMINOTRANSFERASE 15 IU/L (0-55); ALBUMIN 3.2 g/dL (3.5-5.0); ALBUMIN/GLOBULIN RATIO 1.1 (0.8-2.0); ALKALINE PHOSPHATASE 90 IU/L (40-150); AMYLASE 40 U/L (25-125); ANION GAP 12.7 mmol/L (8-16); BLOOD UREA NITROGEN 6 mg/dL (7-26); BUN/CREATININE RATIO 9 (6-25); CALCIUM 8.2 mg/dL (8.4-10.2); CARBON DIOXIDE 26 mmol/L (22-29); CHLORIDE 108 mmol/L (98-107); EST GLOMERULAR FILTRATION RATE > 60 ML/MIN (60-); GLUCOSE 157 mg/dL (74-118); LIPASE 34 U/L (8-78); POTASSIUM 3.7 mmol/L (3.5-5.1); SODIUM 143 mmol/L (136-145)
--- NOTE | 2020-03-10 07:00 | NUR ---
Patient resting comfortably. Walking rounds done. Shift report given to oncoming nurse regarding patient's status.
--- NOTE | 2020-03-10 07:22 | NUR ---
received pt from previous shift
[2020-03-10 07:57] VITALS: BP 154/71
[2020-03-10 08:17] VITALS: BP 154/71
[2020-03-10] MEDS: CYANOCOBALAMIN INJ 1,000 MCG/ML VIAL IM SCH (08:51)
[2020-03-10] MEDS: IRON SUCROSE 100 MG in SODIUM CHLORIDE 0.9% 100 ML 100 ML IV SCH (08:58)
[2020-03-10] MEDS: ONDANSETRON HCL INJ 2MG/ML 2ML 2 MG/ML VIAL IV PRN (08:58)
[2020-03-10] MEDS ORDERED: ENALAPRIL MALEATE 5 MG TAB PO SCH (09:00)
[2020-03-10] MEDS ORDERED: LISINOPRIL 10 MG TAB PO SCH (09:00)
[2020-03-10] MEDS ORDERED: ASPIRIN 81 MG CHEW TAB PO SCH (09:00)
--- NOTE | 2020-03-10 11:12 | NUR ---
pt up ambulating in hallway
[2020-03-10 12:00] VITALS: BP 141/70
--- NOTE | 2020-03-10 14:29 | NUR ---
Possible discharge today if tolerating diet DC Summary [id number]
[2020-03-10] MEDS ORDERED: B-12 DOTS500 MCG PO (14:36)
[2020-03-10] MEDS ORDERED: COLACE100 MG PO (14:36)
[2020-03-10] MEDS ORDERED: FERROUS SULFAT325 MG PO (14:36)
[2020-03-10] MEDS ORDERED: PANTOPRAZOLE SO40 MG PO (14:36)
[2020-03-10 16:00] VITALS: BP 142/63
--- NOTE | 2020-03-10 16:20 | NUR ---
blood glucose 61, pt states she feels little shaky, apple juice and 1/2 ham sandwich given. pt blood sugar rechecked after 20 minutes. results 98. pt states she is not shaky.
--- NOTE | 2020-03-10 17:34 | Discharge Summary ---
PRIMARY CARE DOCTOR: Jenaro Diaz MD. HOSPITALIST: Mamadou Mcgarry MD. PRIMARY DIAGNOSIS: Pancreatitis. HOSPITAL COURSE: Ms. Cifuentes is a 59-year-old female, who came to [facility] with generalized abdominal pain. The patient with white count of 11, creatinine 0.7, alkaline phosphatase was normal, lipase of 298 was significant. Therefore, she was admitted for further treatment and care. On ultrasound of the gallbladder, there was no gallbladder seen. There was hepatic steatosis, rule out other findings. Common bile duct was 0.66 cm in size. The MRI was done of abdomen with MRCP demonstrating unremarkable findings. As symptoms got better, otherwise, on supportive medical management and pancreatic rest, she was allowed for discharge. Her diet is being increased as she is tolerating. Coronavirus testing was negative. Lipase level normalized. Remarkable findings do include a vitamin B12 of 271 and iron saturation of 10%, so she was recommended for followup for the B12 deficiency as well as iron deficiency anemia. Outstanding issues. Continue clinical followup. Consideration for CT scan to rule out other structural disease in the abdomen if symptoms recur and is also reasonable with iron deficiency as well. Follow up with Dr. Jenaro Diaz, Dr. Carlos Alberto Mcclellan, Gastroenterology. DIET: At discharge, ADA diet with low fat. ACTIVITY: As tolerated. MEDICATIONS ON DISCHARGE: Please see discharge summary medications for details, electronic MAR. Greater than 30 minutes in care and coordination on this date. MD JASKARAN Jauregui/KENDRAL /[id number]
--- NOTE | 2020-03-10 17:36 | NUR ---
pt eating dinner, soft ada diet
--- NOTE | 2020-03-10 17:45 | NUR ---
pt ate soft low fat ada diet. pt has no abd pain at time.
--- NOTE | 2020-03-10 18:18 | NUR ---
pt dc home with prescriptions, iv removed. pt able to tolerate ada soft low fat diet with no abd pain or diarrhea. vital signs stable
[2020-03-10] MEDS ORDERED: SIMVASTATIN 40 MG TAB PO SCH (21:00)
[2020-03-10] MEDS ORDERED: TRAZODONE HCL 50 MG TAB PO SCH (21:00)
[2020-03-10] MEDS ORDERED: QUETIAPINE FUMARATE 25 MG TAB PO SCH (21:00)
== END 2020-03-10 18:41 | disposition home or self-care (01) | DRG 440 ==
LOC: ER 01:51 → ERHOLD 03:49 → MED/SURG3 04:35
PROVIDERS: ADMIT Internal Medicine; ATTEND Internal Medicine
DX: K85.90 Acute pancreatitis without necrosis or infection, unspecified (principal); I10 Essential (primary) hypertension; E11.9 Type 2 diabetes mellitus without complications; E03.9 Hypothyroidism, unspecified; E78.5 Hyperlipidemia, unspecified; Z90.49 Acquired absence of other specified parts of digestive tract; R94.5 Abnormal results of liver function studies; D51.3 Other dietary vitamin B12 deficiency anemia; D50.9 Iron deficiency anemia, unspecified; M54.9 Dorsalgia, unspecified; Z20.828 Contact with and (suspected) exposure to other viral communicable diseases; Z79.4 Long term (current) use of insulin
CPT/HCPCS: 36415; 74181; 76705; 80053; 81001; 82150; 82550; 82553; 82607; 82746; 82948; 83540; 83690; 84466; 84478; 84484; 85025; 85045; 93005; 96361; 99284; J0500; J1756; J1817; J2270; J2405; J3420; J7030; U0002

== ENCOUNTER 2022-02-01 12:46 | Emergency (ER) | payer BC ==
[~2022-02-01] VITALS: Ht 154.9 cm; Wt 78.9 kg
[~2022-02-01 12:46] MED LIST changes: +B-12 DOTS500 MCG PO; +COLACE100 MG PO; +FERROUS SULFAT325 MG PO; +PANTOPRAZOLE SO40 MG PO
[2022-02-01] MEDS ORDERED: LIDOCAINE 4% PATCH TP SCH (13:15)
[2022-02-01] MEDS ORDERED: HYDROCODONE/APAP 5MG-325MG TAB PO ONE (13:15)
[2022-02-01 15:02] VITALS: BP 163/75
[2022-02-01] MEDS ORDERED: CELEBREX100 MG PO (15:13)
== END 2022-02-01 15:24 | disposition home or self-care (01) ==
LOC: ER 12:55
DX: R07.89 Other chest pain (principal); I10 Essential (primary) hypertension; E11.40 Type 2 diabetes mellitus with diabetic neuropathy, unspecified; E78.5 Hyperlipidemia, unspecified; E03.9 Hypothyroidism, unspecified
CPT/HCPCS: 71101; 99283

== ENCOUNTER 2024-02-29 14:23 | Emergency (ER) | payer SELFPAY ==
[~2024-02-29] VITALS: Ht 154.9 cm; Wt 78.9 kg
[~2024-02-29 14:23] MED LIST changes: +ALTOPREV40 MG PO; +CELEBREX100 MG PO; +CEPHALEXIN500 MG PO; +D3 PLUS K2 DOT1 EACH PO; +LORATADINE10 MG PO; +METFORMIN HCL500 MG PO; +METOPROLOL TART50 MG PO; +MULTI-VITAMIN1 EACH PO; +NEURONTIN300 MG PO; +ZESTRIL40 MG PO
[2024-02-29 14:36] VITALS: PULSE 71; RESP 16; TEMP 98.2
[2024-02-29] MEDS: KETOROLAC TROMETHAMINE 30 MG/ML VIAL IM STA (16:05)
[2024-02-29] MEDS ORDERED: NAPROXEN250 MG PO (17:19)
[2024-02-29 17:36] VITALS: BP 167/68; PULSE 64; RESP 18; O2SAT 100
== END 2024-02-29 17:41 | disposition home or self-care (01) ==
LOC: ER 15:45
DX: M54.2 Cervicalgia (principal); M25.512 Pain in left shoulder; M79.671 Pain in right foot; V43.52XA Car driver injured in collision with other type car in traffic accident, initial encounter; Y92.488 Other paved roadways as the place of occurrence of the external cause; E11.65 Type 2 diabetes mellitus with hyperglycemia; I10 Essential (primary) hypertension; E78.5 Hyperlipidemia, unspecified; E03.9 Hypothyroidism, unspecified
CPT/HCPCS: 72050; 73030; 73630; 99284; J1885